=== PATIENT | female | born 1980 | race Caucasian/White ===

== ENCOUNTER 2023-07-10 19:55 | Emergency (ER) | payer MEDICAID ==
[~2023-07-10] VITALS: Ht 167.6 cm; Wt 67.8 kg
[2023-07-10 20:10] VITALS: BP 128/55; PULSE 86; RESP 16; TEMP 97.8; O2SAT 100
== END 2023-07-11 02:05 | disposition left against medical advice (07) ==
LOC: ER 19:57
DX: R56.9 Unspecified convulsions (principal); Z53.21 Procedure and treatment not carried out due to patient leaving prior to being seen by health care provider
CPT/HCPCS: 99281